=== PATIENT | male | born 1985 | race Hispanic/Latino ===

== ENCOUNTER 2017-06-16 16:14 | Observation (INO) | payer OTHER, SELFPAY ==
[2017-06-16] MEDS ORDERED: Ondansetron ODT 4 MG TAB ONE (17:00)
[2017-06-16] MEDS ORDERED: Ketorolac Tromethamine 30 MG/ML VIAL ONE (17:00)
[2017-06-16 17:04] LABS: #Basophils 0.1 thou/uL (0.0-0.2); #Eosinphils 0.3 thou/uL (0.0-0.7); #Lymphocytes 1.5 thou/uL (1.20-3.40); #Monocytes 1.1 thou/uL (0.11-0.59); #Neutrophils 8.3 thou/uL (1.40-6.50); %Basophils 0.5 % (0.0-1.0); %Eosinophils 3.1 % (0.0-10.0); %Lymphocytes 13.2 % (21.0-51.0); %Monocytes 9.6 % (0.0-10.0); %Neutrophils 73.6 % (42.0-75.0); Hemoglobin 16.7 g/dL (14.0-18.0); Mean Corpuscular HGB CONC 33.9 g/dL (32.0-36.0); Mean Corpuscular Hemoglobin 29.5 pg (27.0-31.0); Mean Corpuscular Volume 87.1 fl (80.0-94.0); Mean Platelet Volume 8.3 fL (7.4-10.4); Platelet Count 180 thou/uL (130-400); RBC Distribution Width 12.9 % (11.5-14.5); Red Blood Cell (RBC) Count 5.66 mill/uL (4.70-6.10); White Blood Cell (WBC) Count 11.2 thou/uL (4.8-10.8)
[2017-06-16 17:27] LABS: ALT (SGPT) 144 U/L (8-55); AST (SGOT) 79 U/L (5-34); Albumin 4.6 g/dL (3.5-5.0); Alkaline Phosphatase 55 U/L (40-150); Anion Gap 14 mmol/L (10-20); BUN (Urea Nitrogen) 13 mg/dL (8.9-20.6); Bilirubin, Total 0.5 mg/dL (0.2-1.2); Calc. Creatinine Clearance 0 mL/min (70-130); Calcium 9.2 mg/dL (7.8-10.44); Carbon Dioxide 22 mmol/L (22-29); Chloride 104 mmol/L (98-107); Estimated GFR-MDRD Greater than 90; Globulin 3.2 g/dL (2.4-3.5); Glucose 102 mg/dL (70-105); Lipase 66 U/L (8-78); Potassium 3.9 mmol/L (3.5-5.1); Protein, Total 7.8 g/dL (6.0-8.3); Sodium 136 mmol/L (136-145)
--- NOTE | 2017-06-16 17:50 | ULT ---
RIGHT UPPER QUADRANT ULTRASOUND 06/16/17 COMPARISON: None. HISTORY: Right upper quadrant pain. TECHNIQUE: Multiplanar sánchez scale sonographic imaging of the right upper quadrant obtained. FINDINGS: The pancreas is poorly assessed secondary to bowel gas. There is increased echogenicity of the hepati c parenchymal suggesting hepatocellular disease, such as steatosis. Common bile duct measures 4 mm, within normal limits. The airplane cleaner reports a negative Gilbert's sign. Cholelithiasis is noted. No pericholecystic fluid o r gallbladder wall thickening. Right kidney measures 12.2 cm in craniocaudal dimension and demonstrates no stone, hydronephrosis or mass lesion. IMPRESSION: Cholelithiasis with no evidence for cholecystitis or biliary dilatation. Probable hepatic steatosis. POS: [facility]
--- NOTE | 2017-06-16 18:04 | RAD ---
PORTABLE AP CHEST X-RAY 06/16/17 HISTORY: Cough and right sided abdominal pain that started last night. FINDINGS: The cardiac silhouette is magnified by projection. Pulmonary vasculature is within normal limits. Nam gs are clear. Osseous structures are intact. IMPRESSION: No acute cardiopulmonary process. POS: [facility]
[2017-06-16 18:08] LABS: Bilirubin Negative (Negative); Blood, Urine Negative (Negative); Clarity CLEAR (Clear); Glucose, Urine (Dipstick) Negative (Negative); Leukocyte Negative (Negative); Nitrite Negative (Negative); Protein, Urine (Dipstick) Negative (Neg-Trace); Specific Gravity, Urine 1.024 (1.002-1.036)
[2017-06-16 18:25] LABS: Amphetamine Not Detected (NotDetected); Barbiturates Screen Not Detected (NotDetected); Benzodiazepine Screen Not Detected (NotDetected); Cocaine Metabolite Screen Not Detected (NotDetected); Medtox Control Line Valid? VALID (VALID); Medtox Reader # READER 4; Methadone Not Detected (NotDetected); Methamphetamine Not Detected (NotDetected); Opiate Screen Not Detected (NotDetected); Oxycodone Screen Not Detected (NotDetected); Phencyclidine (PCP) Not Detected (NotDetected); THC/Cannabinoid Screen Not Detected (NotDetected); Tricyclic Screen Not Detected (NotDetected)
[2017-06-16] MEDS ORDERED: Ondansetron HCl/PF 4 MG/2 ML Vial IVP PRN (21:29)
[2017-06-16] MEDS ORDERED: Sodium Chloride 0.9% 1,000 ML IV SCH (21:29)
[2017-06-16] MEDS ORDERED: Ondansetron ODT 4 MG TAB SL PRN (21:29)
[2017-06-16] MEDS ORDERED: Diabetic Tussin 200 MG/10 ML UDCUP PO PRN (22:45)
[2017-06-16] MEDS ORDERED: Ketorolac Tromethamine 30 MG/ML VIAL IVP PRN (22:46)
[2017-06-16] MEDS ORDERED: Cepastat Lozenges 1 LOZ PO PRN (22:46)
[2017-06-16] MEDS ORDERED: Acetaminophen 1,000 MG in Premix Bag 1 BAG IVPB PRN (22:46)
[2017-06-16] MEDS ORDERED: Ondansetron ODT 4 MG TAB PO PRN (22:47)
[2017-06-16] MEDS: Sodium Chloride 0.9% 1,000 ML IV SCH (23:12)
[2017-06-17 01:21] VITALS: BMI 37.0
[2017-06-17] MEDS: Sodium Chloride 0.9% 1,000 ML IV SCH (08:47)
[2017-06-17] MEDS ORDERED: Fentanyl 100 MCG/2 ML VIAL ONE ×2 (10:50→13:26)
[2017-06-17] MEDS ORDERED: HYDROmorphone 0.5 MG/0.5 ML SYRINGE ONE (10:51)
[2017-06-17] MEDS ORDERED: Bupivacaine HCl 0.5%/Epinephrine 1:200,000/PF 30 ml Vial ONE (11:03)
[2017-06-17] MEDS ORDERED: Ketorolac Tromethamine 30 MG/ML VIAL ONE (11:03)
[2017-06-17] MEDS ORDERED: Dexamethasone 20 MG/5 ML VIAL ONE (11:28)
[2017-06-17] MEDS ORDERED: ePHEDrine/0.9% NaCl/PF SYRINGE 50 mg/10 ml ONE (11:28)
[2017-06-17] MEDS ORDERED: Glycopyrrolate 0.2 MG/ML 5 ML SYRINGE ONE (11:28)
[2017-06-17] MEDS ORDERED: Lidocaine 1% PF 5 ML VIAL ONE (11:28)
[2017-06-17] MEDS ORDERED: PROPOFOL 200 MG/20 ML VIAL ONE (11:28)
[2017-06-17] MEDS ORDERED: Promethazine HCl 25 MG/ML VIAL IM PRN (12:44)
[2017-06-17] MEDS ORDERED: Promethazine HCl 25 MG/ML VIAL SLOW IVP PRN (12:44)
[2017-06-17] MEDS ORDERED: Ondansetron HCl/PF 4 MG/2 ML Vial IVP PRN (12:44)
[2017-06-17] MEDS ORDERED: HYDROmorphone 2 MG/ML VIAL SLOW IVP PRN (12:44)
[2017-06-17] MEDS ORDERED: traMADol HCl 50 MG TAB PO PRN ×2 (12:57)
[2017-06-17] MEDS ORDERED: Ibuprofen 600 MG TAB PO PRN (12:57)
[2017-06-17] MEDS ORDERED: Acetaminophen 500 MG TAB PO PRN (12:57)
--- NOTE | 2017-06-17 14:44 | OP ---
DATE OF OPERATION: 06/16/2017 PREOPERATIVE DIAGNOSES: Cholecystitis and cholelithiasis, acute and chronic, obesity. POSTOPERATIVE DIAGNOSES: Cholecystitis and cholelithiasis, acute and chronic, obesity. PROCEDURE: Laparoscopic video cholecystectomy. SURGEON: Aguilar Morris M.D. ANESTHESIA: General. Local 0.5% Marcaine with epinephrine 30 mL. ESTIMATED BLOOD LOSS: 20 mL PROCEDURE FINDINGS: Acute cholecystitis, large stone obstructing gallbladder outlet. Normal-appeari ng liver. PROCEDURE: The patient was taken to the operating room where under general anesthesia, abdomen was c lipped of hair, prepared with ChloraPrep, draped in routine fashion. Local anesthetic infiltrated in to skin and subcutaneous tissue about each port sites. Infraumbilical incision made. Pneumoperitone um to 15 mmHg obtained. Veress needle replaced with a 5 port and laparoscope inserted. Right subxip hoid incision was made and 11 port placed. Right subcostal incision made, mid clavicular anterior ax illary lines and 5 ports placed. Gallbladder fundus grasped and reflected cephalad. Infundibulum gr asped and reflected laterally. Cystic artery and duct dissected free. Critical view obtained. Cyst ic artery and duct doubly clipped proximally, divided, and gallbladder dissected free from the liver bed obtaining good hemostasis prior to division of final peritoneal attachments. Gallbladder and lar ge stone removed and submitted to Pathology. Good hemostasis ensured with the cautery. Subxiphoid f ascia approximated with 0 Vicryl. Irrigant and pneumoperitoneum evacuated. All this instruments rem мария and all skin incisions approximated with interrupted subdermal 4-0 Monocryl and DermaGlue jasper pierre
--- NOTE | 2017-06-17 14:49 | HP ---
HISTORY OF PRESENT ILLNESS: A 32-year-old male, 5 feet 7, 237 pounds, 37 BMI, presents with epigastr ic right upper quadrant pain associated with nausea. Ultrasound reveals gallstones with normal bile duct caliber. Liver function tests are normal. He is hospitalized overnight, given intravenous flui ds. He had a previous episode three to four years ago and was told he had gallstones, told he should have this taken care of, but he did not. He has had some few episodes in the interim, but not as se brian as this. ALLERGIES: None. SOCIAL HISTORY: Tobacco 2-3 cigarettes a day. ALCOHOL: Socially. MEDICATIONS: None routinely. PAST SURGICAL HISTORY: Laparoscopic appendectomy that I performed in the past. REVIEW OF SYSTEMS: Noncontributory. 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 REVIEW OF SYSTEMS: [place] point noncontributory. PHYSICAL EXAMINATION: VITAL SIGNS: 5 feet 7, 237 pounds, 37 BMI, 99 degrees, 98, 123/78. HEENT: Unremarkable. LUNGS: Clear to auscultation. CARDIAC: Regular rate and rhythm without murmur or gallop. ABDOMEN: Soft. Mild tenderness in epigastric right upper quadrant with mild guarding, positive Murp hy sign. EXTREMITIES: Unremarkable. ASSESSMENT AND PLAN: Cholecystitis and cholelithiasis. I have recommended laparoscopic video cholec ystectomy. Risk of infection, bleeding, visceral and biliary injury discussed. Questions answered. We will proceed with laparoscopic cholecystectomy.
[2017-06-17 17:40] VITALS: BP 113/73; TEMP 98.4
--- NOTE | 2017-06-17 23:58 | DIS ---
DATE OF ADMISSION: 06/16/2017 DATE OF DISCHARGE: 06/17/2017 HOSPITALIZATION DIAGNOSES: Cholecystitis and cholelithiasis. PROCEDURES: Laparoscopic video cholecystectomy. Ultrasound of the gallbladder preoperatively. HISTORY: A 32-year-old male who I have performed laparoscopic appendectomy years past, presents with symptoms of biliary disease. He had a similar episode several years ago, told that he would need to have his gallbladder removed, but he did not. Ultrasound of gallbladder confirmed gallstones, liver function tests essentially normal. He was admitted, received intravenous antibiotics, underwent lap aroscopic cholecystectomy. Postoperatively, discharged home. Follow up in my office in 2-3 weeks. Diet and activity as tolerated. No lifting restrictions. Shower and bathe whenever, sent home to [facility] Tylenol or Motrin over the counter for analgesics and if needed Ultram prescription given # 2 refi lls.
== END 2017-06-17 18:36 | disposition home or self-care (01) ==
LOC: ERS 16:14 → SJJU 18:44
PROVIDERS: ADMIT Specialist; ATTEND Specialist
PROC: 0FT44ZZ Resection of Gallbladder, Percutaneous Endoscopic Approach (ICD-10-PCS; principal; 2017-06-16)
DX: K80.10 Calculus of gallbladder with chronic cholecystitis without obstruction (principal); F17.210 Nicotine dependence, cigarettes, uncomplicated; E66.9 Obesity, unspecified; Z68.37 Body mass index [BMI] 37.0-37.9, adult
CPT/HCPCS: 71045; 76705; 80053; 80306; 81003; 83690; 85025; 88304; 96361; 96365; 96366; 96374; 96375; 99406; G0378; J0131; J0670; J1100; J1170; J1885; J1956; J2001; J2704; J3010; Q0162